=== PATIENT | male | born 1950 | race Caucasian/White ===

== ENCOUNTER 2024-01-25 14:11 | Day surgery (SDC) | payer MEDICARE ==
[2024-01-25] MEDS ORDERED: Sensorcaine 0.25% 10 ML IJ ONE (14:12)
[2024-01-25] MEDS ORDERED: LIDOCAINE HCL 1% AMPUL 5 ML IJ ONE (14:12)
[2024-01-25] MEDS ORDERED: Depo-Medrol 40 MG/ML IM ONE (14:12)
--- NOTE | 2024-01-25 19:33 | XRAY ---
Indication: Right SI joint injection. Intraoperative fluoroscopy provided for 13 seconds. Single digital spot image submitted for interpretation demonstrates posterior needle tip projecting over right SI joint. Small amount of contrast injected for needle tip placement. Correlate with intraoperative findings/report.
--- NOTE | 2024-01-26 11:27 | XRAY ---
13 seconds of fluoroscopy was used in surgery for a right sacroiliac joint injection.
== END 2024-01-25 17:05 | disposition home or self-care (01) ==
LOC: SDC-PAIN 14:11
PROVIDERS: ATTEND Psychiatry & Neurology Pain Medicine
DX: M46.1 Sacroiliitis, not elsewhere classified (principal)
CPT/HCPCS: 27096; 72170; 77002; G0260; Q9966